=== PATIENT | male | born 1990 | race Caucasian/White ===

== ENCOUNTER 2016-09-06 01:22 | Emergency (ER) | payer SELFPAY | END 2016-09-06 02:33 | disposition left against medical advice (07) | LOC: ER1 01:22 | DX: Z53.21 Procedure and treatment not carried out due to patient leaving prior to being seen by health care provider (principal) ==

== ENCOUNTER 2020-11-02 15:28 | Emergency (ER) | payer SELFPAY ==
[~2020-11-02 15:28] MED LIST: CLEOCIN HCL300 MG PO; DELSYM30 MG/5 ML PO; IBUPROFEN800 MG PO; TAMIFLU75 MG PO; VIBRAMYCIN100 MG PO; ZOFRAN4 MG PO
[2020-11-02] MEDS ORDERED: IBUPROFEN600 MG PO (16:14)
[2020-11-02] MEDS ORDERED: Viscous Lidocaine2% TOP (16:14)
== END 2020-11-02 16:50 | disposition home or self-care (01) ==
LOC: ER1 15:28
DX: K08.89 Other specified disorders of teeth and supporting structures (principal)
CPT/HCPCS: 96372; 99282; J1885